=== PATIENT | female | born 1965 | race Caucasian/White ===

== ENCOUNTER → 2021-02-16 | Day surgery (SDC) | payer BC, OTHER ==
[~2021-02-16] MED LIST: ACEBUTOLOL HCL200 MG PO; ASPIRIN81 MG PO; CRESTOR10 MG PO; GLIPIZIDE10 MG; MULTI-VITAMIN1 EACH PO; NAPROXEN250 MG PO; OXYBUTYNIN CHLOR5 MG PO; POVIDONE IODINE 0.05% 0.05 % ML PO ONE; PROPOFOL IV EMULSION 10 MG/ML 20 ML VIAL ONE; SOLIQUA 100 UNIT3 ML; VALSARTAN-HCTZ1 EAC2; VITAMIN C60 MG; VITAMIN D
[2021-02-16 12:40] VITALS: BP 119/83
== END | disposition home or self-care (01) ==
LOC: OR 10:11
PROVIDERS: ATTEND Internal Medicine Gastroenterology
DX: K29.30 Chronic superficial gastritis without bleeding (principal); K44.9 Diaphragmatic hernia without obstruction or gangrene; Z71.3 Dietary counseling and surveillance; E66.9 Obesity, unspecified; E66.01 Morbid (severe) obesity due to excess calories; E11.9 Type 2 diabetes mellitus without complications; I10 Essential (primary) hypertension; Z88.0 Allergy status to penicillin; Z01.812 Encounter for preprocedural laboratory examination; Z20.822 Contact with and (suspected) exposure to COVID-19; Z79.82 Long term (current) use of aspirin; Z79.4 Long term (current) use of insulin; Z79.899 Other long term (current) drug therapy; Z68.43 Body mass index [BMI] 50.0-59.9, adult
CPT/HCPCS: 36415; 43239; 82948; J2704; U0002